=== PATIENT | male | born 1945 | race Caucasian/White ===

== ENCOUNTER 2020-08-01 18:43 | Inpatient (IN) ==
[2020-08-01] MEDS ORDERED: 0.9 % SODIUM CHLORIDE 1,000 ML IV ONE (19:17)
--- NOTE | 2020-08-01 20:17 | Emergency Department Note ---
Weakness HPI General Chief complaint: Weakness Stated complaint: weakness Time Seen by Provider: 08/01/20 18:59 Source: patient and EMS Mode of arrival: EMS Limitations: no limitations History of Present Illness HPI Narrative: Narrative: 75-year-old male comes in complaining of flulike symptoms including body aches, mild congestion and cough. No trouble breathing or chest pain. His has the Covid and so she was concerned about him. She is his primary caregiver and he is bedridden. He has bedsores on his buttocks. He is also started antibiotics yesterday for urinary tract infection-cefuroxime plus methenamine. He has indwelling Chavez-it is dark but he says this is because he started [id number] medicine for it like Azo. Related Data Home Medications Medication Instructions Recorded Confirmed ciprofloxacin HCl 500 mg tablet 500 mg PO BID 12/02/19 12/02/19 nystatin-triamcinolone 100,000 1 applic TOPICAL BID 12/02/19 unit/g-0.1 % topical cream Previous Rx's Medication Instructions Recorded amlodipine 10 mg tablet 10 mg PO QDAY #90 tab 04/29/16 hydrocodone 5 mg-acetaminophen 325 1 tab PO .QD PRN #30 tab 04/29/16 mg tablet metoprolol tartrate 100 mg tablet 100 mg PO QDAY #90 tab 04/29/16 simvastatin 20 mg tablet 20 mg PO QPM #90 tab 04/29/16 benazepril 20 mg tablet 20 mg PO QDAY #60 tab 05/20/16 omeprazole 20 mg capsule,delayed 20 mg PO QDAY #60 cap 05/20/16 release potassium chloride 20 meq PO BIDCC #20 tab 07/11/18 Allergies Allergy/AdvReac Type Severity Reaction Status Date / Time No Known Drug Allergies Allergy Verified 08/01/20 18:45 Review of Systems ROS ROS Narrative: Narrative: All systems ED: reviewed and negative except as stated. PFSH Narrative Patient History Narrative: Narrative: Medical/Surgical/Family History All Active Problems (Updated 08/01/20 @ 23:17 by Jordan Delvalle MD) Pressure ulcer of buttock (Acute) Acute UTI (Acute) COVID-19 (Acute) Bedridden (Acute) Chronic indwelling Chavez catheter (Acute) Traumatic pneumothorax (Chronic ~2016) Broken ribs (Chronic ~2017) Rash (Chronic) Poor sleep (Chronic) Indigestion (Chronic) Hypercalcemia (Chronic) Serum iron raised (Chronic) Urticaria (Chronic) Elevated ferritin (Chronic) Elevated liver enzymes (Chronic) GERD (gastroesophageal reflux disease) (Chronic) Abscess of buttock (Chronic) Pneumothorax (Chronic) Impacted cerumen of both ears (Chronic) Balance problem (Chronic) Frequent falls (Chronic) Weakness (Chronic) Mobility poor (Chronic) Benign essential tremor (Chronic) Dizziness (Chronic) Rhabdomyolysis (Acute) Fall (Acute) Hypotension (Acute) Hypokalemia (Acute) Tobacco abuse (Chronic) Rosacea (Chronic) Low back pain (Chronic) Hypertension, essential (Chronic) Hyperlipidemia (Chronic 11/25/13) Erectile dysfunction (Chronic) Eczema (Chronic) Personal history of colonic polyps (Chronic) Benign neoplasm of eye (Chronic) Alcohol dependence (Chronic) Medical History Abscess of buttock (Chronic) Alcohol dependence (Chronic) Balance problem (Chronic) Benign essential tremor (Chronic) 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, 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 Broken ribs (Chronic ~2016) 2 broken ribs right side that punctured lung Dizziness (Chronic) Eczema (Chronic) Elevated ferritin (Chronic) Elevated liver enzymes (Chronic) Erectile dysfunction (Chronic) Fall (Acute) Frequent falls (Chronic) GERD (gastroesophageal reflux disease) (Chronic) Hypercalcemia (Chronic) Hyperlipidemia (Chronic 11/25/13) Hypertension, essential (Chronic) 1989 Hypokalemia (Acute) Hypotension (Acute) Impacted cerumen of both ears (Chronic) Indigestion (Chronic) Low back pain (Chronic) 27 years of age, chronic low back pain Mobility poor (Chronic) Personal history of colonic polyps (Chronic) Pneumothorax (Chronic) Poor sleep (Chronic) Rash (Chronic) reoccurring Rhabdomyolysis (Acute) Rosacea (Chronic) Serum iron raised (Chronic) Tobacco abuse (Chronic) Traumatic pneumothorax (Chronic ~2017) 2 broken ribs right side that punctured lung Urticaria (Chronic) Weakness (Chronic) Surgical History History of colonoscopy (Chronic 04/03/14) History of knee replacement procedure of right knee (Chronic) Sep 2010, Injury in [employer] and had removal of cartilage at that time, needed replacement due to "bone on bone" that had caused increased pain History of knee surgery (Chronic) 1960s Cartilage removed from right knee History of tonsillectomy (Chronic) 7 years of age History of vasectomy (Chronic) 1985 S/P skin biopsy (Chronic 05/31/14) Atypical squamoproliferative lesion associated with ulcer 06/07/2014: Left Buttock: Residual ulcerated atypical squamosproliferative lesion, favor prurigo nodularis Family History Mother , 72 Malignant neoplasm of breast, Onset Age: 67 CHF (congestive heart failure), Onset Age: 70 Brother DM type 2 (diabetes mellitus, type 2), Onset Age: 55 Father , 69 Hypertension, essential 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 Chavez has dark red urine in it. He is normocephalic atraumatic. Conjunctive are clear sclerae white nonicteric. No nasal discharge but mild audible congestion. Oropharynx pink and moist. Heart is regular rate and rhythm no murmur appreciated. Lungs are clear to auscultation bilaterally without wheezes rales rhonchi or respiratory distress. Abdomen is soft nontender nondistended. He was able to pull himself over to 1 side so I could take a look at his buttocks and I do see stage II pressure ulcers on both sides of the buttock cleft there is some maceration here and a breakdown of the skin at the cleft as well some purulent discharge. These areas are approximately 5 cm long and about 3 cm wide bilaterally. The right one is little bit larger than the left. It does look like he has some atrophy of his legs and his feet are somewhat flaccid. He does appear to be mentating at baseline he is able to give me reasonable history and review of system answer questions appropriately. General Limitations: no limitations Course Vital Signs Vital signs: Vital Signs Temperature 98.8 F 08/01/20 18:43 Pulse Rate 70 08/01/20 18:43 Respiratory Rate 18 08/01/20 18:43 Blood Pressure 125/80 08/01/20 18:43 Pulse Oximetry (%) 94 08/01/20 18:43 Temperature 98.8 F 08/01/20 18:43 Pulse Rate 76 08/01/20 20:12 Respiratory Rate 18 08/01/20 18:43 Blood Pressure 128/81 08/01/20 20:12 Pulse Oximetry (%) 94 08/01/20 20:12 MDM MDM Narrative Medical decision making narrative: Narrative: So he has a current UTI, stage II ulcers at his buttocks and known exposure to Covid-now with early symptoms. It is unclear how long he has been exposed to the Covid. He is currently on antibiotics. We will order work-up with laboratory and x-ray. Laboratory shows continued UTI despite getting a dose of cefuroxime. We will give him a dose of Rocephin here. Indwelling Chavez catheter complicates things Covid is positive and he does have symptoms of cough and congestion but chest x- ray is clear. Procalcitonin is mildly elevated He is bedridden and does have stage II pressure ulcers bilateral sacral prominences but they do not necessarily appear infected. He will need regular care for these. I discussed the situation with his . His is sick at home and cannot get out of bed to take care of him. There is no family nearby and [facility] can not come to them because they are Covid positive. So we will have to keep him here I discussed the scenario with Dr. Kaur and he agreed to accept the patient for further care and evaluation here in the hospital. I will go ahead and write transition orders for him to include remdesivir Rocephin and routine wound care. Dr. Kaur will see him in the morning Lab Data Lab results reviewed: Yes I reviewed the patient's lab results. Lab results narrative: Covid testing is positive Result diagrams: 08/01/20 19:40 08/01/20 19:40 Labs: Lab Results 08/01/20 08/01/20 08/01/20 Range/Units 19:40 19:40 19:40 WBC 4.4 L (4.5-11.0) K/mcL RBC 5.75 (4.50-5.90) M/mcL Hgb 16.3 (13.5-16.5) g/dL Hct 49.4 (41.0-55.0) % MCV 85.9 (80.0-100.0) fL MCH 28.3 (26.0-34.0) pg MCHC 33.0 (31.0-36.0) g/dL RDW 15.0 H (11.5-14.5) % Plt Count 212 (140-440) K/mcL MPV 9.4 (7.4-10.4) fL Neut % (Auto) 58.8 (38.0-78.0) % Lymph % (Auto) 22.6 (15.0-49.0) % [place] % (Auto) 16.3 H (1.0-12.0) % Eos % (Auto) 1.8 (0.0-7.0) % Baso % (Auto) 0.5 (0.0-2.0) % Lymph # (Auto) 1.00 L (1.50-4.80) K/mcL [place] # (Auto) 0.72 (0.10-0.90) K/mcL Eos # (Auto) 0.08 (0.00-0.70) K/mcL Baso # (Auto) 0.02 (0.00-0.20) K/mcL Absolute Neutrophils 2.60 (1.80-8.00) K/mcL VBG Lactic Acid 1.1 (0.5-2.0) mmol/L Sodium 135 (133-145) mmol/L Potassium 4.3 (3.3-5.1) mmol/L Chloride 100 (96-108) mmol/L Carbon Dioxide 21 L (22-30) mmol/L Anion Gap 14.0 (8.0-16.0) BUN 16 (8-23) mg/dL Creatinine 0.9 (0.7-1.2) mg/dL GFR Calculation 84 Glucose 84 (70-105) mg/dL Calcium 8.9 (8.6-10.4) mg/dL Magnesium 2.2 (1.6-2.5) mg/dL Total Bilirubin 0.6 (0.1-1.0) mg/dL AST 23 (<40) U/L ALT 12 (<40) U/L Alkaline Phosphatase 107 (39-117) U/L Troponin T (<0.03) ng/mL C-Reactive Protein 1.90 H (0.03-0.80) mg/dL NT-Pro-B Natriuret Pep 57.9 (<125.0) pg/mL Total Protein 7.2 (5.9-8.4) gm/dL Albumin 3.9 (3.2-5.2) gm/dL Globulin 3.3 (2.2-3.7) gm/dL Albumin/Globulin Ratio 1.2 (1.0-2.3) Procalcitonin (<0.10) ng/mL Urine Color Urine Appearance (Clear) Urine pH (5.0-9.0) Ur Specific [place] (1.000-1.035) Urine Protein (Negative) mg/dL Urine Glucose (UA) (Negative) mg/dL Urine Ketones (Negative) mg/dL Urine Occult Blood (Negative) mg/dL Urine Nitrate (Negative) Urine Bilirubin (Negative) mg/dL Urine Urobilinogen mg/dL Ur Leukocyte Esterase (Negative) /ug Urine RBC (0-1) /hpf Urine WBC (0-4) /hpf Ur Squamous Epith Cells (0-4) /hpf Calcium Oxalate Crystal (None) /hpf Urine Bacteria (0) /hpf Hyaline Casts (0-2) /lph Urine Mucus (None) /hpf Ur Culture Indicated? SARS-CoV-2 (PCR) (Negative) 08/01/20 08/01/20 08/01/20 Range/Units 19:40 19:40 19:44 WBC (4.5-11.0) K/mcL RBC (4.50-5.90) M/mcL Hgb (13.5-16.5) g/dL Hct (41.0-55.0) % MCV (80.0-100.0) fL MCH (26.0-34.0) pg MCHC (31.0-36.0) g/dL RDW (11.5-14.5) % Plt Count (140-440) K/mcL MPV (7.4-10.4) fL Neut % (Auto) (38.0-78.0) % Lymph % (Auto) (15.0-49.0) % [place] % (Auto) (1.0-12.0) % Eos % (Auto) (0.0-7.0) % Baso % (Auto) (0.0-2.0) % Lymph # (Auto) (1.50-4.80) K/mcL [place] # (Auto) (0.10-0.90) K/mcL Eos # (Auto) (0.00-0.70) K/mcL Baso # (Auto) (0.00-0.20) K/mcL Absolute Neutrophils (1.80-8.00) K/mcL VBG Lactic Acid (0.5-2.0) mmol/L Sodium (133-145) mmol/L Potassium (3.3-5.1) mmol/L Chloride (96-108) mmol/L Carbon Dioxide (22-30) mmol/L Anion Gap (8.0-16.0) BUN (8-23) mg/dL Creatinine (0.7-1.2) mg/dL GFR Calculation Glucose (70-105) mg/dL Calcium (8.6-10.4) mg/dL Magnesium (1.6-2.5) mg/dL Total Bilirubin (0.1-1.0) mg/dL AST (<40) U/L ALT (<40) U/L Alkaline Phosphatase (39-117) U/L Troponin T < 0.01 (<0.03) ng/mL C-Reactive Protein (0.03-0.80) mg/dL NT-Pro-B Natriuret Pep (<125.0) pg/mL Total Protein (5.9-8.4) gm/dL Albumin (3.2-5.2) gm/dL Globulin (2.2-3.7) gm/dL Albumin/Globulin Ratio (1.0-2.3) Procalcitonin 0.11 H (<0.10) ng/mL Urine Color Urine Appearance (Clear) Urine pH (5.0-9.0) Ur Specific [place] (1.000-1.035) Urine Protein (Negative) mg/dL Urine Glucose (UA) (Negative) mg/dL Urine Ketones (Negative) mg/dL Urine Occult Blood (Negative) mg/dL Urine Nitrate (Negative) Urine Bilirubin (Negative) mg/dL Urine Urobilinogen mg/dL Ur Leukocyte Esterase (Negative) /ug Urine RBC (0-1) /hpf Urine WBC (0-4) /hpf Ur Squamous Epith Cells (0-4) /hpf Calcium Oxalate Crystal (None) /hpf Urine Bacteria (0) /hpf Hyaline Casts (0-2) /lph Urine Mucus (None) /hpf Ur Culture Indicated? SARS-CoV-2 (PCR) Positive A (Negative) 08/01/20 Range/Units 20:05 WBC (4.5-11.0) K/mcL RBC (4.50-5.90) M/mcL Hgb (13.5-16.5) g/dL Hct (41.0-55.0) % MCV (80.0-100.0) fL MCH (26.0-34.0) pg MCHC (31.0-36.0) g/dL RDW (11.5-14.5) % Plt Count (140-440) K/mcL MPV (7.4-10.4) fL Neut % (Auto) (38.0-78.0) % Lymph % (Auto) (15.0-49.0) % [place] % (Auto) (1.0-12.0) % Eos % (Auto) (0.0-7.0) % Baso % (Auto) (0.0-2.0) % Lymph # (Auto) (1.50-4.80) K/mcL [place] # (Auto) (0.10-0.90) K/mcL Eos # (Auto) (0.00-0.70) K/mcL Baso # (Auto) (0.00-0.20) K/mcL Absolute Neutrophils (1.80-8.00) K/mcL VBG Lactic Acid (0.5-2.0) mmol/L Sodium (133-145) mmol/L Potassium (3.3-5.1) mmol/L Chloride (96-108) mmol/L Carbon Dioxide (22-30) mmol/L Anion Gap (8.0-16.0) BUN (8-23) mg/dL Creatinine (0.7-1.2) mg/dL GFR Calculation Glucose (70-105) mg/dL Calcium (8.6-10.4) mg/dL Magnesium (1.6-2.5) mg/dL Total Bilirubin (0.1-1.0) mg/dL AST (<40) U/L ALT (<40) U/L Alkaline Phosphatase (39-117) U/L Troponin T (<0.03) ng/mL C-Reactive Protein (0.03-0.80) mg/dL NT-Pro-B Natriuret Pep (<125.0) pg/mL Total Protein (5.9-8.4) gm/dL Albumin (3.2-5.2) gm/dL Globulin (2.2-3.7) gm/dL Albumin/Globulin Ratio (1.0-2.3) Procalcitonin (<0.10) ng/mL Urine Color [place] Urine Appearance Cloudy A (Clear) Urine pH 5.0 (5.0-9.0) Ur Specific [place] 1.025 (1.000-1.035) Urine Protein 100 A (Negative) mg/dL Urine Glucose (UA) Negative (Negative) mg/dL Urine Ketones 20 A (Negative) mg/dL Urine Occult Blood >=1.0 A (Negative) mg/dL Urine Nitrate Pos A (Negative) Urine Bilirubin Negative (Negative) mg/dL Urine Urobilinogen 4.0 A mg/dL Ur Leukocyte Esterase 75 A (Negative) /ug Urine RBC > 182 H (0-1) /hpf Urine WBC 84 H (0-4) /hpf Ur Squamous Epith Cells 0 (0-4) /hpf Calcium Oxalate Crystal Few A (None) /hpf Urine Bacteria Mod A (0) /hpf Hyaline Casts 13 H (0-2) /lph Urine Mucus Few A (None) /hpf Ur Culture Indicated? yes SARS-CoV-2 (PCR) (Negative) Radiology Data Radiology results reviewed: Yes I reviewed the patient's radiology results. Radiology results narrative: Chest x-ray is negative Discharge Plan Patient/Caregiver Discharge Instructions Pt seen by [employer]/PA only: No Clinical Impression: Acute UTI, COVID-19, Bedridden, Chronic indwelling Chavez catheter Pressure ulcer of buttock Qualifiers: Pressure injury stage: stage 2 Laterality: unspecified laterality Qualified Code(s): L89.302 - Pressure ulcer of unspecified buttock, stage 2 Patient Disposition: Xfer As Inpt ([facility]) Condition: Fair Follow up with: Yaya Rader ARNP [Primary Care Provider] - Prescriptions: No Action ciprofloxacin HCl 500 mg tablet 500 mg PO BID RF: 0 nystatin-triamcinolone 100,000 unit/g-0.1 % topical cream 100,000-0.1 unit/g-% cream 1 applic TOPICAL BID RF: 0 amlodipine 10 mg tablet 10 mg PO QDAY Qty: 90 RF: 3 metoprolol tartrate 100 mg tablet 100 mg PO QDAY Qty: 90 RF: 3 simvastatin 20 mg tablet 20 mg PO QPM Qty: 90 RF: 3 hydrocodone-acetaminophen 5-325 mg tablet 1 tab PO .QD PRN (Reason: pain) Qty: 30 RF: 0 benazepril 20 mg tablet 20 mg PO QDAY Qty: 60 RF: 2 omeprazole 20 mg capsule,delayed release(DR/EC) 20 mg PO QDAY Qty: 60 RF: 3 potassium chloride 20 MEQ tablet 20 meq PO BIDCC Qty: 20 RF: 0
--- NOTE | 2020-08-01 20:36 | XRay Report ---
INDICATION: exposure to covid. flu sx TECHNIQUE: AP portable semiupright chest x-ray COMPARISON: Previous chest x-rays dated 09/07/2018, 07/11/2018, 05/09/2016 FINDINGS: Lungs:Lungs are negative. No focal pulmonary parenchymal infiltrate or mass Heart, vascular:No significant cardiomegaly. Pulmonary vascularity is normal. No pulmonary edema or pulmonary congestion Mediastinum, lina:No mediastinal widening. No hilar mass Pleura:No pleural fluid. No pleural-based mass or calcification Skeletal:Negative. IMPRESSION: Negative AP chest x-ray Interpreted and Authenticated by: Jace Pitts 08/01/20
[2020-08-01 21:19] LABS: Appearance,Urine CLOUDY (Clear); Bacteria,Urine MOD /hpf (0); Bilirubin,Urine Negative (Negative); Calcium Oxalate Crystals,Urine FEW /hpf; Color,Urine AMBER; Culture Indicated,Urine yes; Glucose,Urine (UA) Negative (Negative); Ketones,Urine 20 mg/dL (Negative); Leukocyte Esterase,Urine 75 /ug (Negative); Mucus,Urine FEW /hpf; Nitrate,Urine POS (Negative); Protein,Urine 100 mg/dL (Negative); Specific Gravity,Urine 1.025 (1.000-1.035); Urine Blood >=1.0 mg/dL (Negative); Urine Hyaline Cast 13 /lph (0-2); Urine RBC > 182 /hpf (0-1); Urine Squamous Epithelial Cell 0 /hpf (0-4); Urine WBC 84 /hpf (0-4)
[2020-08-01 21:21] LABS: Basophils # (Auto) 0.02 K/mcL (0.00-0.20); Basophils % (Auto) 0.5 % (0.0-2.0); Eosinophils # (Auto) 0.08 K/mcL (0.00-0.70); Eosinophils % (Auto) 1.8 % (0.0-7.0); Hematocrit 49.4 % (41.0-55.0); Hemoglobin 16.3 g/dL (13.5-16.5); Lymphocytes % (Auto) 22.6 % (15.0-49.0); Mean Cell Volume 85.9 fL (80.0-100.0); Mean Platelet Volume 9.4 fL (7.4-10.4); Monocytes # (Auto) 0.72 K/mcL (0.10-0.90); Monocytes % (Auto) 16.3 % (1.0-12.0); Neutrophils % (Auto) 58.8 % (38.0-78.0); Platelet Count 212 K/mcL (140-440); RBC 5.75 M/mcL (4.50-5.90); WBC 4.4 K/mcL (4.5-11.0)
[2020-08-01 21:25] LABS: ALT/SGPT 12 U/L (<40); AST/SGOT 23 U/L (<40); Albumin 3.9 gm/dL (3.2-5.2); Albumin/Globulin Ratio 1.2 (1.0-2.3); Alkaline Phosphatase 107 U/L (39-117); Bilirubin,Total 0.6 mg/dL (0.1-1.0); Blood Urea Nitrogen 16 mg/dL (8-23); Calcium 8.9 mg/dL (8.6-10.4); Carbon Dioxide 21 mmol/L (22-30); Chloride 100 mmol/L (96-108); Globulin 3.3 gm/dL (2.2-3.7); Glomerular Filtration Rate 84; Glucose 84 mg/dL (70-105); proBNP 57.9 pg/mL (<125.0)
[2020-08-01] MEDS ORDERED: cefTRIAXone 1 GM VIAL IV ONE (22:25)
[2020-08-01] MEDS ORDERED: REMDESIVIR 200 MG in 0.9 % SODIUM CHLORIDE 250 ML IV ONE (23:21)
[2020-08-02] MEDS: 0.9 % SODIUM CHLORIDE 1,000 ML IV SCH ×3 (02:01→20:40)
[2020-08-02] MEDS ORDERED: MAGNESIUM SULFATE 2 GM/50 ML BAG IV PRN (08:25)
[2020-08-02] MEDS ORDERED: ACETAMINOPHEN 325 MG TABLET PO PRN (08:25)
[2020-08-02] MEDS ORDERED: POLYETHYLENE GLYCOL 3350 17 GM PACKET PO PRN (08:25)
[2020-08-02] MEDS ORDERED: ONDANSETRON 4 MG ODT TABLET SL PRN (08:25)
[2020-08-02] MEDS ORDERED: POTASSIUM CHLORIDE 20 MEQ PACKET PO PRN (08:25)
[2020-08-02] MEDS ORDERED: POTASSIUM CHLORIDE 40 MEQ in DEXTROSE 5% IN WATER 500 ML IV PRN (08:25)
[2020-08-02] MEDS ORDERED: ONDANSETRON 4 MG/2 ML VIAL IV PRN (08:25)
[2020-08-02] MEDS ORDERED: BISACODYL 10 MG SUPP.RECT PR PRN (08:25)
[2020-08-02] MEDS ORDERED: ACETAMINOPHEN 650 MG/65 ML BOTTLE IV PRN (08:25)
[2020-08-02] MEDS ORDERED: HYDROcodone/APAP 10/325MG TABLET PO PRN (08:29)
[2020-08-02] MEDS ORDERED: REMDESIVIR 100 MG in 0.9 % SODIUM CHLORIDE 250 ML IV SCH (08:30)
--- NOTE | 2020-08-02 08:30 | Internal Med History&Physical ---
HPI History of Present Illness Patient information: Note initiated : 08/01/20 at 11:45 pm Service Date, if different from initiated Date: [] Patient: Marvin Jimenez a 75 y/o M admitted on 08/02/20 for weakness. Chief Complaint: History of present illness: Mr. Jimenez is a 75 year old M with a history of progressive paraplegia over the last 1 year following a fall, hypertension, chronic pain, sacral decubiti and indwelling catheter who lives with his at [facility]. Patient presents to the ER with few days onset of weakness, nasal congestion myalgia and cough. He was evaluated in the ER where initial work-up was consistent with positive COVID-19 with acute viral syndrome and complicated hardware related UTI with pyuria. Patient changes catheter once every 3 weeks. He has been on methenamine and cefuroxime as an outpatient for catheter infection which clearly has failed treatment and gotten worse. Patient's expressed great concerns about ability to take care of him due to paraplegia/and both being Covid positive. Subsequently hospital service was consulted for admission At the time of my evaluation patient is alert but anxious. He is able to answer most of the questions and endorsed to history as above. He denies changes medications. He change his catheter 2 weeks ago. Review of systems 10 point review system was performed and is negative except for ones discussed above PFSH PFSH All Active Problems (Updated 08/01/20 @ 23:17 by Jordan Delvalle MD) Pressure ulcer of buttock (Acute) Acute UTI (Acute) COVID-19 (Acute) Bedridden (Acute) Chronic indwelling Chavez catheter (Acute) Traumatic pneumothorax (Chronic ~2017) Broken ribs (Chronic ~2017) Rash (Chronic) Poor sleep (Chronic) Indigestion (Chronic) Hypercalcemia (Chronic) Serum iron raised (Chronic) Urticaria (Chronic) Elevated ferritin (Chronic) Elevated liver enzymes (Chronic) GERD (gastroesophageal reflux disease) (Chronic) Abscess of buttock (Chronic) Pneumothorax (Chronic) Impacted cerumen of both ears (Chronic) Balance problem (Chronic) Frequent falls (Chronic) Weakness (Chronic) Mobility poor (Chronic) Benign essential tremor (Chronic) Dizziness (Chronic) Rhabdomyolysis (Acute) Fall (Acute) Hypotension (Acute) Hypokalemia (Acute) Tobacco abuse (Chronic) Rosacea (Chronic) Low back pain (Chronic) Hypertension, essential (Chronic) Hyperlipidemia (Chronic 11/25/13) Erectile dysfunction (Chronic) Eczema (Chronic) Personal history of colonic polyps (Chronic) Benign neoplasm of eye (Chronic) Alcohol dependence (Chronic) Medical History Abscess of buttock (Chronic) Alcohol dependence (Chronic) Balance problem (Chronic) Benign essential tremor (Chronic) 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, 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 Broken ribs (Chronic ~2017) 2 broken ribs right side that punctured lung Dizziness (Chronic) Eczema (Chronic) Elevated ferritin (Chronic) Elevated liver enzymes (Chronic) Erectile dysfunction (Chronic) Fall (Acute) Frequent falls (Chronic) GERD (gastroesophageal reflux disease) (Chronic) Hypercalcemia (Chronic) Hyperlipidemia (Chronic 11/25/13) Hypertension, essential (Chronic) 1989 Hypokalemia (Acute) Hypotension (Acute) Impacted cerumen of both ears (Chronic) Indigestion (Chronic) Low back pain (Chronic) 27 years of age, chronic low back pain Mobility poor (Chronic) Personal history of colonic polyps (Chronic) Pneumothorax (Chronic) Poor sleep (Chronic) Rash (Chronic) reoccurring Rhabdomyolysis (Acute) Rosacea (Chronic) Serum iron raised (Chronic) Tobacco abuse (Chronic) Traumatic pneumothorax (Chronic ~2017) 2 broken ribs right side that punctured lung Urticaria (Chronic) Weakness (Chronic) Surgical History History of colonoscopy (Chronic 04/03/14) History of knee replacement procedure of right knee (Chronic) Sep 2010, Injury in [employer] and had removal of cartilage at that time, needed replacement due to "bone on bone" that had caused increased pain History of knee surgery (Chronic) 1960s Cartilage removed from right knee History of tonsillectomy (Chronic) 7 years of age History of vasectomy (Chronic) 1985 S/P skin biopsy (Chronic 05/31/14) Atypical squamoproliferative lesion associated with ulcer 06/07/2014: Left Buttock: Residual ulcerated atypical squamosproliferative lesion, favor prurigo nodularis Family History Mother , 72 Malignant neoplasm of breast, Onset Age: 67 CHF (congestive heart failure), Onset Age: 70 Brother DM type 2 (diabetes mellitus, type 2), Onset Age: 55 Father , 69 Hypertension, essential Lung disease thought to be caused by leather fibers from work in a [employer] company Social History marital status: occupational status: retired 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 smoking status: Smokeless tobacco alcohol intake frequency: 2+ drinks per day MEDS/ALLERGIES Home Medications and Allergies Home Medications Medication Instructions Recorded Confirmed Type metoprolol tartrate 100 mg tablet 100 mg PO QDAY #90 tab 04/29/16 08/01/20 Rx benazepril 20 mg tablet 20 mg PO QDAY #60 tab 05/20/16 08/01/20 Rx cefuroxime axetil 500 mg PO BID 08/01/20 08/01/20 History hydrocodone-acetaminophen 1 tab PO Q8H PRN 08/01/20 08/01/20 History methenamine hippurate 1 g PO BID 08/01/20 08/01/20 History oxycodone 5 mg PO TID 08/01/20 08/01/20 History Allergies Allergy/AdvReac Type Severity Reaction Status Date / Time No Known Drug Allergies Allergy Verified 08/02/20 01:44 EXAM Constitutional Vitals: Temp Pulse Resp BP Pulse Ox 96.2 F L 72 16 122/68 94 08/02/20 07:16 08/02/20 07:16 08/02/20 07:16 08/02/20 07:16 08/02/20 07:16 Alert but anxious Head normocephalic Oral cavity moist No ear nose discharge Eye movement symmetrical Neck supple no lymphadenopathy S1-S2 regular Nonlabored breathing Nondistended nontender abdomen Indwelling Chavez's catheter Sacral decubiti Paraplegic Psych no hallucination Neuro paraplegia DATA Data Completed and Pending Labs: Labs from last 24 hours 08/01/20 08/01/20 08/01/20 20:05 19:44 19:40 WBC RBC Hgb Hct MCV MCH MCHC RDW Plt Count MPV Neut % (Auto) Lymph % (Auto) Falls % (Auto) Eos % (Auto) Baso % (Auto) Lymph # (Auto) Falls # (Auto) Eos # (Auto) Baso # (Auto) Absolute Neutrophils VBG Lactic Acid Sodium Potassium Chloride Carbon Dioxide Anion Gap BUN Creatinine GFR Calculation Glucose Calcium Magnesium Total Bilirubin AST ALT Alkaline Phosphatase Troponin T C-Reactive Protein NT-Pro-B Natriuret Pep Total Protein Albumin Globulin Albumin/Globulin Ratio Procalcitonin 0.11 H Urine Color Layla Urine Appearance Cloudy A Urine pH 5.0 Ur Specific [place] 1.025 Urine Protein 100 A Urine Glucose (UA) Negative Urine Ketones 20 A Urine Occult Blood >=1.0 A Urine Nitrate Pos A Urine Bilirubin Negative Urine Urobilinogen 4.0 A Ur Leukocyte Esterase 75 A Urine RBC > 182 H Urine WBC 84 H Ur Squamous Epith Cells 0 Calcium Oxalate Crystal Few A Urine Bacteria Mod A Hyaline Casts 13 H Urine Mucus Few A Ur Culture Indicated? yes SARS-CoV-2 (PCR) Positive A 08/01/20 08/01/20 08/01/20 19:40 19:40 19:40 WBC RBC Hgb Hct MCV MCH MCHC RDW Plt Count MPV Neut % (Auto) Lymph % (Auto) Falls % (Auto) Eos % (Auto) Baso % (Auto) Lymph # (Auto) Falls # (Auto) Eos # (Auto) Baso # (Auto) Absolute Neutrophils VBG Lactic Acid 1.1 Sodium 135 Potassium 4.3 Chloride 100 Carbon Dioxide 21 L Anion Gap 14.0 BUN 16 Creatinine 0.9 GFR Calculation 84 Glucose 84 Calcium 8.9 Magnesium 2.2 Total Bilirubin 0.6 AST 23 ALT 12 Alkaline Phosphatase 107 Troponin T < 0.01 C-Reactive Protein 1.90 H NT-Pro-B Natriuret Pep 57.9 Total Protein 7.2 Albumin 3.9 Globulin 3.3 Albumin/Globulin Ratio 1.2 Procalcitonin Urine Color Urine Appearance Urine pH Ur Specific [place] Urine Protein Urine Glucose (UA) Urine Ketones Urine Occult Blood Urine Nitrate Urine Bilirubin Urine Urobilinogen Ur Leukocyte Esterase Urine RBC Urine WBC Ur Squamous Epith Cells Calcium Oxalate Crystal Urine Bacteria Hyaline Casts Urine Mucus Ur Culture Indicated? SARS-CoV-2 (PCR) 08/01/20 19:40 WBC 4.4 L RBC 5.75 Hgb 16.3 Hct 49.4 MCV 85.9 MCH 28.3 MCHC 33.0 RDW 15.0 H Plt Count 212 MPV 9.4 Neut % (Auto) 58.8 Lymph % (Auto) 22.6 Falls % (Auto) 16.3 H Eos % (Auto) 1.8 Baso % (Auto) 0.5 Lymph # (Auto) 1.00 L [place] # (Auto) 0.72 Eos # (Auto) 0.08 Baso # (Auto) 0.02 Absolute Neutrophils 2.60 VBG Lactic Acid Sodium Potassium Chloride Carbon Dioxide Anion Gap BUN Creatinine GFR Calculation Glucose Calcium Magnesium Total Bilirubin AST ALT Alkaline Phosphatase Troponin T C-Reactive Protein NT-Pro-B Natriuret Pep Total Protein Albumin Globulin Albumin/Globulin Ratio Procalcitonin Urine Color Urine Appearance Urine pH Ur Specific [place] Urine Protein Urine Glucose (UA) Urine Ketones Urine Occult Blood Urine Nitrate Urine Bilirubin Urine Urobilinogen Ur Leukocyte Esterase Urine RBC Urine WBC Ur Squamous Epith Cells Calcium Oxalate Crystal Urine Bacteria Hyaline Casts Urine Mucus Ur Culture Indicated? SARS-CoV-2 (PCR) A/P Narrative A/P Narrative: * Complicated UTI hardware related failed outpatient treatment. Start antibiotic coverage on Rocephin and de-escalate based on sensitivities. * COVID-19 acute viral syndrome-start remdesivir/dexamethasone/contact precautions * History of hypertension continue benazepril * Chronic pain continue hydrocodone acetaminophen/Oxycodone * Sacral decubiti wound care/frequent turning and offloading * Prophylaxis heparin * DNR Plan * Observation admission * Antibiotic coverage * Change Chavez's catheter * Remdesivir/dexamethasone/contact precautions * Pre-existing medical condition management as above Time Spent With Patient Time: Total time spent is greater than 50% in coordination of care (as documented) at patient's floor/unit and/or counseling patient: QUALITY Stroke Symptom Onset Unknown: No VTE Deep Vein Thrombosis/Pulmonary Embolism Present on Admission: No
[2020-08-02] MEDS ORDERED: cefTRIAXone 2 GM VIAL ONE (08:46)
[2020-08-02] MEDS: HEPARIN 5,000 UNIT/ML VIAL SQ SCH ×2 (09:05→20:41)
[2020-08-02] MEDS: MULTIVIT,THER IRON,CA,FA & MIN 1 TABLET PO SCH (09:05)
[2020-08-02] MEDS: DEXAMETHASONE 4 MG TABLET PO SCH (09:05)
[2020-08-02] MEDS: LISINOPRIL 20 MG TABLET PO SCH (09:05)
[2020-08-02] MEDS: cefTRIAXone 2 GM in DEXTROSE 5% IN WATER 50 ML IV SCH ×2 (09:06→13:20)
[2020-08-02] MEDS: DOCUSATE SODIUM 100 MG CAPSULE PO SCH ×2 (09:06→20:40)
[2020-08-02] MEDS: oxyCODONE HCL 5 MG TABLET PO SCH ×3 (09:06→20:37)
[2020-08-02] MEDS: Methenamine Hippurate 1 GM Tablet PO SCH ×2 (09:07→20:40)
[2020-08-02] MEDS: METOPROLOL TARTRATE 50 MG TABLET PO SCH (09:07)
[2020-08-02 10:25] LABS: ALT/SGPT 12 U/L (<40); AST/SGOT 25 U/L (<40); Alkaline Phosphatase 105 U/L (39-117)
--- NOTE | 2020-08-02 11:47 | Internal Med Progress Note ---
SUBJECTIVE Subjective Patient information: Note initiated : 08/02/20 at 11:43 am Service Date, if different from initiated Date: [] Patient: Marvin Jimenez a 75 y/o M admitted on 08/02/20 for weakness. Chief Complaint: History of present illness: Mr. Jimenez is a 75 year old M with a history of prog ressive paraplegia over the last 1 year following a fall, hypertension, chronic pain, sacral decubiti and indwelling catheter who lives with his at [facility]. Patient presents to the ER with few days onset of weakness, nasal congestion myalgia and cough. He was evaluated in the ER where initial work-up was consistent with positive COVID-19 with acute viral syndrome and complicated hardware related UTI with pyuria. Patient changes catheter once every 3 weeks. He has been on methenamine and cefuroxime as an outpatient for catheter infection which clearly has failed treatment and gotten worse. Patient's expressed great concerns about ability to take care of him due to paraplegia/and both being Covid positive. Subsequently hospital service was consulted for admission At the time of my evaluation patient is alert but anxious. He is able to answer most of the questions and endorsed to history as above. He denies changes medications. He change his catheter 2 weeks ago. 08/02-patient feels worse since admission. He appears anxious. Seemed visibly unhappy with his unable to take care of him. Patient requested to visit caseworkers. He however is agreeable to being treated for complicated UTI in Covid infection. He clearly stated that he would not want to be in a rehab facility following discharge and would like to go back home but unclear how he would be able to manage himself. Constitutional Vitals: Vital Signs Temp Pulse Resp BP Pulse Ox 96.2 F L 72 16 122/68 94 08/02/20 07:16 08/02/20 07:16 08/02/20 07:16 08/02/20 07:16 08/02/20 07:16 Period Temp Pulse Resp BP Sys/Marquez Pulse Ox Last 24 Hr 95.1 F-98.8 F 63-76 16-22 106-130/68-81 94-95 Intake and Output 08/01/20 08/02/20 08/02/20 21:59 05:59 13:59 Intake Total 1350 90 Output Total 950 Balance 400 90 Weight 90.718 kg 99.564 kg Alert and oriented Anxious Nonlabored breathing Chavez is draining dark urine Intake & Output: Intake & Output 08/01/20 08/02/20 08/02/20 21:59 05:59 13:59 Intake Total 1350 90 Output Total 950 Balance 400 90 Weight 90.718 kg 99.564 kg Intake: IV 1250 Sodium Chloride 0.9% 1,000 ml @ 1000 Wide Open IV .Q0M ONE Rx#: [id number] Veklury 200 mg In Sodium 250 Chloride 0.9% 250 ml @ 500 mls/ hr IV ONCE ONE Rx#:[id number] Oral 100 90 Output: Urine Catheter Amount 950 Other: Urine Appearance Clear Uretheral (Chavez) Clear Urine Color Dark Layla Tea Colored Uretheral (Chavez) Brown Red Brown OBJ DATA Labs CBC & Chem 7: 08/01/20 19:40 08/01/20 19:40 Labs: Abnormal Lab Results 08/01/20 08/01/20 08/01/20 20:05 19:44 19:40 WBC RDW [place] % (Auto) Lymph # (Auto) Carbon Dioxide C-Reactive Protein Procalcitonin 0.11 H Urine Appearance Cloudy A Urine Protein 100 A Urine Ketones 20 A Urine Occult Blood >=1.0 A Urine Nitrate Pos A Urine Urobilinogen 4.0 A Ur Leukocyte Esterase 75 A Urine RBC > 182 H Urine WBC 84 H Calcium Oxalate Crystal Few A Urine Bacteria Mod A Hyaline Casts 13 H Urine Mucus Few A SARS-CoV-2 (PCR) Positive A 08/01/20 08/01/20 19:40 19:40 WBC 4.4 L RDW 15.0 H [place] % (Auto) 16.3 H Lymph # (Auto) 1.00 L Carbon Dioxide 21 L C-Reactive Protein 1.90 H Procalcitonin Urine Appearance Urine Protein Urine Ketones Urine Occult Blood Urine Nitrate Urine Urobilinogen Ur Leukocyte Esterase Urine RBC Urine WBC Calcium Oxalate Crystal Urine Bacteria Hyaline Casts Urine Mucus SARS-CoV-2 (PCR) Meds: Medications Acetaminophen (Tylenol) 650 mg PO Q4-6HP PRN; Protocol PRN Reason: Per Pain Protocol/Fever > 101 Hydrocodone Bitart/Acetaminophen ([place] 10/325mg) 1 tab PO Q8HP PRN; Protocol PRN Reason: Pain Bisacodyl (Dulcolax) 10 mg [place] Q2-3DAYS PRN PRN Reason: Constipation Dexamethasone (Decadron) 6 mg PO DAILY [facility] Last Admin: 08/02/20 09:05 Dose: 6 mg Documented by: Docusate Sodium (Colace) 100 mg PO BID [facility] Last Admin: 08/02/20 09:06 Dose: 100 mg Documented by: Heparin Sodium (Porcine) (Heparin) 5,000 unit SQ Q12 [facility] Last Admin: 08/02/20 09:05 Dose: 5,000 unit Documented by: Sodium Chloride (Sodium Chloride 0.9%) 1,000 mls @ 50 mls/hr IV .Q20H [facility] Last Admin: 08/02/20 02:01 Dose: 50 mls/hr Documented by: Potassium Chloride 40 meq/ (Dextrose) 520 mls @ 130 mls/hr IV UD PRN PRN Reason: K+ = or < 3.5 Acetaminophen (Ofirmev) 650 mg in 65 mls @ 130 mls/hr IV Q6HP PRN; Protocol PRN Reason: Per Pain Protocol/Fever > 101 Magnesium Sulfate (Magnesium Sulfate) 2 gm in 50 mls @ 50 mls/hr IV UD PRN PRN Reason: MG = or < 1.7 Sodium Chloride (Sodium Chloride 0.9%) 1,000 mls @ 50 mls/hr IV .Q20H [facility] Stop: 08/04/20 20:29 Last Admin: 08/02/20 09:06 Dose: Not Given Documented by: Ceftriaxone Sodium 2 gm/ (Dextrose) 50 mls @ 100 mls/hr IV DAILY [facility]; Protocol Last Admin: 08/02/20 09:06 Dose: Not Given Documented by: REMDESIVIR 100 mg/ Sodium (Chloride) 250 mls @ 500 mls/hr IV DAILY [facility] Stop: 08/05/20 09:29 Iron Carb/Multivit/[place]/Folic Acid (Multivitamin W/Minerals) 1 tab PO DAILY [facility] Last Admin: 08/02/20 09:05 Dose: 1 tab Documented by: Lisinopril (Zestril) 20 mg PO DAILY [facility] Last Admin: 08/02/20 09:05 Dose: 20 mg Documented by: Melatonin (Melatonin 3mg Tablet) 3 mg PO HSP PRN PRN Reason: Insomnia Metoprolol Tartrate (Lopressor) 100 mg PO QDAY [facility] Last Admin: 08/02/20 09:07 Dose: 100 mg Documented by: Ondansetron HCl (Zofran Odt) 4 mg SL Q4-6HP PRN; Protocol PRN Reason: Nausea And Vomiting Ondansetron HCl (Zofran) 4 mg IV Q4-6HP PRN; Protocol PRN Reason: Nausea And Vomiting Oxycodone HCl (Roxicodone) 5 mg PO TID [facility]; Protocol Last Admin: 08/02/20 09:06 Dose: 5 mg Documented by: Methenamine Hippurate 1 Gm Tablet 1 dose PO BID [facility] Last Admin: 08/02/20 09:07 Dose: Not Given Documented by: Polyethylene Glycol (Miralax) 17 gm PO DAILYP PRN PRN Reason: Constipation Potassium Chloride (Klor-Con) 40 meq PO DAILYP PRN PRN Reason: K+ < 3.5 Senna/Docusate Sodium (Senna Plus Tablet) 1 tab PO HS [facility] Sodium Chloride (Saline Flush) 10 ml IV Q8 [facility] A/P Narrative A/P Narrative: * Complicated UTI hardware related failed outpatient treatment. Continue Rocephin and de-escalate based on sensitivities. * COVID-19 acute viral syndrome-continue remdesivir/dexamethasone/contact precautions * History of hypertension continue PK inhibitor/metoprolol * Chronic pain continue hydrocodone acetaminophen/Oxycodone * Sacral decubiti wound care/frequent turning and offloading * Chronic paraplegia directed therapies * Prophylaxis heparin * DNR Plan * Continue antibiotic coverage and de-escalate based on sensitivities * Replace Chavez's catheter * Continue remdesivir/dexamethasone/contact precautions * Pre-existing medical condition management as above * Case management coordinate safe discharge planning Time Spent With Patient Time: Total time spent is greater than 50% in coordination of care (as document ed) at patient's floor/unit and/or counseling patient: QUALITY Stroke Symptom Onset Unknown: No VTE Deep Vein Thrombosis/Pulmonary Embolism Present on Admission: No
[2020-08-02] MEDS: 0.9 % SODIUM CHLORIDE 10 ML SYRINGE IV SCH ×2 (13:24→20:59)
[2020-08-02] MEDS: REMDESIVIR 100 MG in 0.9 % SODIUM CHLORIDE 250 ML IV SCH (15:12)
[2020-08-02] MEDS: SENNOSIDES/DOCUSATE SODIUM 1 TAB TABLET PO SCH (20:40)
[2020-08-02] MEDS ORDERED: MELATONIN 3 MG TABLET PO PRN (21:00)
[2020-08-03] MEDS: 0.9 % SODIUM CHLORIDE 1,000 ML IV SCH ×2 (04:00→15:02)
[2020-08-03] MEDS: 0.9 % SODIUM CHLORIDE 10 ML SYRINGE IV SCH ×3 (04:08→22:10)
[2020-08-03 07:20] LABS: ALT/SGPT 12 U/L (<40); AST/SGOT 23 U/L (<40); Albumin 3.4 gm/dL (3.2-5.2); Albumin/Globulin Ratio 1.1 (1.0-2.3); Alkaline Phosphatase 101 U/L (39-117); Bilirubin,Direct < 0.2 mg/dL (<0.3); Bilirubin,Total 0.3 mg/dL (0.1-1.0); Blood Urea Nitrogen 17 mg/dL (8-23); Calcium 8.6 mg/dL (8.6-10.4); Carbon Dioxide 21 mmol/L (22-30); Chloride 101 mmol/L (96-108); Globulin 3.2 gm/dL (2.2-3.7); Glomerular Filtration Rate 100; Glucose 144 mg/dL (70-105); Lactate Dehydrogenase 159 U/L (135-225); Phosphorous 1.6 mg/dL (2.5-4.5); Triglycerides 80 mg/dL (<150); Uric Acid 7.1 mg/dL (2.5-8.0)
[2020-08-03 08:21] LABS: Ferritin 858.4 ng/mL (30.0-400.0)
[2020-08-03] MEDS: cefTRIAXone 2 GM in DEXTROSE 5% IN WATER 50 ML IV SCH (08:39)
[2020-08-03] MEDS: HEPARIN 5,000 UNIT/ML VIAL SQ SCH ×2 (08:39→22:09)
[2020-08-03] MEDS: METOPROLOL TARTRATE 50 MG TABLET PO SCH (08:40)
[2020-08-03] MEDS: oxyCODONE HCL 5 MG TABLET PO SCH ×3 (08:40→22:11)
[2020-08-03] MEDS: DEXAMETHASONE 4 MG TABLET PO SCH (08:40)
[2020-08-03] MEDS: DOCUSATE SODIUM 100 MG CAPSULE PO SCH ×2 (08:41→22:11)
[2020-08-03] MEDS: Methenamine Hippurate 1 GM Tablet PO SCH ×2 (08:41→22:10)
[2020-08-03] MEDS: LISINOPRIL 20 MG TABLET PO SCH (08:41)
[2020-08-03] MEDS: MULTIVIT,THER IRON,CA,FA & MIN 1 TABLET PO SCH (08:41)
[2020-08-03] MEDS: NEUTRA PHOS 1 PACKET PO PRN (09:54)
[2020-08-03] MEDS: REMDESIVIR 100 MG in 0.9 % SODIUM CHLORIDE 250 ML IV SCH (09:54)
--- NOTE | 2020-08-03 10:57 | Internal Med Progress Note ---
SUBJECTIVE Subjective Patient information: Note initiated : 08/03/20 at 10:53 am Service Date, if different from initiated Date: [] Patient: Marvin Jimenez a 75 y/o M admitted on 08/02/20 for weakness. Chief Complaint: [] Interval history: History of present illness: Mr. Jimenez is a 75 year old M with a history of progressive paraplegia over the last 1 year following a fall, hypertension, chronic pain, sacral decubiti and indwelling catheter who lives with his at [facility]. Patient presents to the ER with few days onset of weakness, nasal congestion myalgia and cough. He was evaluated in the ER where initial work-up was consistent with positive COVID-19 with acute viral syndrome and complicated hardware related UTI with pyuria. Patient changes catheter once every 3 weeks. He has been on methenamine and cefuroxime as an outpatient for catheter infection which clearly has failed treatment and gotten worse. Patient's expressed great concerns about ability to take care of him due to paraplegia/and both being Covid positive. Subsequently hospital service was consulted for admission At the time of my evaluation patient is alert but anxious. He is able to answer most of the questions and endorsed to history as above. He denies changes medications. He change his catheter 2 weeks ago. 08/02-patient feels worse since admission. He appears anxious. Seemed visibly unhappy with his unable to take care of him. Patient requested to visit caseworkers. He however is agreeable to being treated for complicated UTI in Covid infection. He clearly stated that he would not want to be in a rehab facility following discharge and would like to go back home but unclear how he would be able to manage himself. 08/03-patient doing well. No overnight events. Remains agitated and wants to discuss his home situation with a rock dust sprayer. Labs remarkable for low phosphorus currently on replacement. Cultures negative so far. Chavez's catheter will be changed today. Blood cultures negative so far. Patient was able to stand with assistance first time in a year. Constitutional Vitals: Vital Signs Temp Pulse Resp BP Pulse Ox 97.7 F 56 L 16 102/72 93 08/03/20 06:59 08/03/20 06:59 08/03/20 06:59 08/03/20 06:59 08/03/20 06:59 Period Temp Pulse Resp BP Sys/Marquez Pulse Ox Last 24 Hr 97.5 F-98.6 F 56-78 16-18 102-125/71-78 91-98 Intake and Output 08/02/20 08/03/20 08/03/20 21:59 05:59 13:59 Intake Total 1183 960 150 Output Total 1050 300 300 Balance 133 660 -150 Weight 99.875 kg anxious and very annoyed at his home situation and not been able to receive legal help at the hospital Nonlabored breathing Chavez is draining blood-tinged urine Intake & Output: Intake & Output 08/02/20 08/03/20 08/03/20 21:59 05:59 13:59 Intake Total 1183 960 150 Output Total 1050 300 300 Balance 133 660 -150 Weight 99.875 kg Intake: IV 1183 50 Sodium Chloride 0.9% 1,000 ml @ 933 50 mls/hr IV .Q20H [facility] Rx#: [id number] Veklury 100 mg In Sodium 250 Chloride 0.9% 250 ml @ 500 mls/ hr IV DAILY [facility] Rx#:[id number] Rocephin 2 gm In Dextrose 5% in 50 Water 50 ml @ 100 mls/hr IV DAILY [facility] Rx#:[id number] Oral 960 100 Output: Urine Catheter Amount 1050 300 300 Uretheral (Chavez) 300 Other: Meal Nourishment/Supplement Nourishment/Supplement Percent of Meal Consumed 100% 25% Feeding Ability Independent Nourishment/Supplement name Egg Salad/Crackers/Applejuice Urine Appearance Sediment Sediment Sediment Uretheral (Chavez) Sediment Sediment Urine Color Tea Colored Tea Colored Tea Colored Red Brown Red Brown Red Brown Uretheral (Chavez) Tea Colored Tea Colored Red Brown Red Brown Urine Odor Strong Strong Strong Uretheral (Chavez) Strong Strong Stool Size Moderate Stool Color Brown Stool Consistency Loose # Bowel Movements 1 # of times incontinent of 1 Bowels OBJ DATA Labs CBC & Chem 7: 08/01/20 19:40 08/03/20 05:45 Labs: Abnormal Lab Results 08/03/20 08/01/20 08/01/20 05:45 20:05 19:44 WBC RDW [place] % (Auto) Lymph # (Auto) Carbon Dioxide 21 L Creatinine 0.6 L Glucose 144 H Phosphorus 1.6 L Ferritin 858.4 H GGT 87 H C-Reactive Protein Procalcitonin Urine Appearance Cloudy A Urine Protein 100 A Urine Ketones 20 A Urine Occult Blood >=1.0 A Urine Nitrate Pos A Urine Urobilinogen 4.0 A Ur Leukocyte Esterase 75 A Urine RBC > 182 H Urine WBC 84 H Calcium Oxalate Crystal Few A Urine Bacteria Mod A Hyaline Casts 13 H Urine Mucus Few A SARS-CoV-2 (PCR) Positive A 08/01/20 08/01/20 08/01/20 19:40 19:40 19:40 WBC 4.4 L RDW 15.0 H [place] % (Auto) 16.3 H Lymph # (Auto) 1.00 L Carbon Dioxide 21 L Creatinine Glucose Phosphorus Ferritin GGT C-Reactive Protein 1.90 H Procalcitonin 0.11 H Urine Appearance Urine Protein Urine Ketones Urine Occult Blood Urine Nitrate Urine Urobilinogen Ur Leukocyte Esterase Urine RBC Urine WBC Calcium Oxalate Crystal Urine Bacteria Hyaline Casts Urine Mucus SARS-CoV-2 (PCR) Meds: Medications Acetaminophen (Tylenol) 650 mg PO Q4-6HP PRN; Protocol PRN Reason: Per Pain Protocol/Fever > 101 Hydrocodone Bitart/Acetaminophen ([place] 10/325mg) 1 tab PO Q8HP PRN; Protocol PRN Reason: Pain Bisacodyl (Dulcolax) 10 mg SD Q2-3DAYS PRN PRN Reason: Constipation Dexamethasone (Decadron) 6 mg PO DAILY [facility] Last Admin: 08/03/20 08:40 Dose: 6 mg Documented by: Docusate Sodium (Colace) 100 mg PO BID [facility] Last Admin: 08/03/20 08:41 Dose: Not Given Documented by: Heparin Sodium (Porcine) (Heparin) 5,000 unit SQ Q12 [facility] Last Admin: 08/03/20 08:39 Dose: 5,000 unit Documented by: Sodium Chloride (Sodium Chloride 0.9%) 1,000 mls @ 50 mls/hr IV .Q20H [facility] Last Admin: 08/02/20 20:40 Dose: 50 mls/hr Documented by: Potassium Chloride 40 meq/ (Dextrose) 520 mls @ 130 mls/hr IV UD PRN PRN Reason: K+ = or < 3.5 Acetaminophen (Ofirmev) 650 mg in 65 mls @ 130 mls/hr IV Q6HP PRN; Protocol PRN Reason: Per Pain Protocol/Fever > 101 Magnesium Sulfate (Magnesium Sulfate) 2 gm in 50 mls @ 50 mls/hr IV UD PRN PRN Reason: MG = or < 1.7 Sodium Chloride (Sodium Chloride 0.9%) 1,000 mls @ 50 mls/hr IV .Q20H [facility] Stop: 08/04/20 20:29 Last Admin: 08/03/20 04:00 Dose: 50 mls/hr Documented by: Ceftriaxone Sodium 2 gm/ (Dextrose) 50 mls @ 100 mls/hr IV DAILY [facility]; Protocol Last Infusion: 08/03/20 09:15 Dose: Infused Documented by: REMDESIVIR 100 mg/ Sodium (Chloride) 250 mls @ 500 mls/hr IV DAILY [facility] Stop: 08/05/20 09:29 Last Admin: 08/03/20 09:54 Dose: 500 mls/hr Documented by: Iron Carb/Multivit/[place]/Folic Acid (Multivitamin W/Minerals) 1 tab PO DAILY [facility] Last Admin: 08/03/20 08:41 Dose: 1 tab Documented by: Lisinopril (Zestril) 20 mg PO DAILY [facility] Last Admin: 08/03/20 08:41 Dose: 20 mg Documented by: Melatonin (Melatonin 3mg Tablet) 3 mg PO HSP PRN PRN Reason: Insomnia Metoprolol Tartrate (Lopressor) 100 mg PO QDAY [facility] Last Admin: 08/03/20 08:40 Dose: 100 mg Documented by: Ondansetron HCl (Zofran Odt) 4 mg SL Q4-6HP PRN; Protocol PRN Reason: Nausea And Vomiting Ondansetron HCl (Zofran) 4 mg IV Q4-6HP PRN; Protocol PRN Reason: Nausea And Vomiting Oxycodone HCl (Roxicodone) 5 mg PO TID [facility]; Protocol Last Admin: 08/03/20 08:40 Dose: 5 mg Documented by: Methenamine Hippurate 1 Gm Tablet 1 dose PO BID [facility] Last Admin: 08/03/20 08:41 Dose: Not Given Documented by: Polyethylene Glycol (Miralax) 17 gm PO DAILYP PRN PRN Reason: Constipation Potassium Chloride (Klor-Con) 40 meq PO DAILYP PRN PRN Reason: K+ < 3.5 Potassium/Phosphorus/Sodium (Neutra Phos) 2 packet PO DAILY PRN PRN Reason: PHOS <2.5 Last Admin: 08/03/20 09:54 Dose: 2 packet Documented by: Senna/Docusate Sodium (Senna Plus Tablet) 1 tab PO HS [facility] Last Admin: 08/02/20 20:40 Dose: Not Given Documented by: Sodium Chloride (Saline Flush) 10 ml IV Q8 [facility] Last Admin: 08/03/20 04:08 Dose: Not Given Documented by: A/P Narrative A/P Narrative: * Complicated UTI hardware related failed outpatient treatment. Clinically improving on Rocephin , cultures negative so far * COVID-19 acute viral syndrome-continue remdesivir/dexamethasone/contact precautions * Hypophosphorus-continue replacement * History of hypertension continue PK inhibitor/metoprolol * Chronic pain continue hydrocodone acetaminophen/Oxycodone * Sacral decubiti wound care/frequent turning and offloading * Chronic paraplegia directed therapies, was able to stand with assistance * Prophylaxis heparin * DNR Plan * Continue antibiotic coverage and de-escalate based on sensitivities * Replace Chavez's catheter * Oral phosphorus replacement * Continue remdesivir/dexamethasone/contact precautions * Pre-existing medical condition management as above * Case management coordinate safe discharge planning Time Spent With Patient Time: Total time spent is greater than 50% in coordination of care (as documented) at patient's floor/unit and/or counseling patient: QUALITY Stroke Symptom Onset Unknown: No VTE Deep Vein Thrombosis/Pulmonary Embolism Present on Admission: No
[2020-08-03 12:04] LABS: Hematocrit 45.2 % (41.0-55.0); Hemoglobin 14.5 g/dL (13.5-16.5); Lymphocytes % 33 % (15-49); Mean Cell Volume 85.3 fL (80.0-100.0); Mean Corpuscular HGB Conc 32.1 g/dL (31.0-36.0); Mean Platelet Volume 9.4 fL (7.4-10.4); Monocytes % (Manual) 14 % (1-12); Platelet Count 261 K/mcL (140-440); Platelet Estimate NORMAL (Normal); RBC Morphology NORMAL (Normal); Red Cell Distribution Width 14.4 % (11.5-14.5); Segmented Neutrophils % 53 % (38-78); WBC 3.9 K/mcL (4.5-11.0)
[2020-08-03] MEDS: SENNOSIDES/DOCUSATE SODIUM 1 TAB TABLET PO SCH (22:10)
[2020-08-04] MEDS: 0.9 % SODIUM CHLORIDE 1,000 ML IV SCH ×2 (00:30→11:02)
[2020-08-04] MEDS: 0.9 % SODIUM CHLORIDE 10 ML SYRINGE IV SCH ×3 (05:10→22:00)
[2020-08-04 08:21] LABS: ALT/SGPT 15 U/L (<40); AST/SGOT 22 U/L (<40); Albumin 3.3 gm/dL (3.2-5.2); Albumin/Globulin Ratio 1.2 (1.0-2.3); Alkaline Phosphatase 90 U/L (39-117); Bilirubin,Direct < 0.2 mg/dL (<0.3); Bilirubin,Total 0.3 mg/dL (0.1-1.0); Blood Urea Nitrogen 16 mg/dL (8-23); Calcium 8.4 mg/dL (8.6-10.4); Carbon Dioxide 21 mmol/L (22-30); Chloride 105 mmol/L (96-108); Globulin 2.7 gm/dL (2.2-3.7); Glomerular Filtration Rate 100; Glucose 111 mg/dL (70-105); Lactate Dehydrogenase 189 U/L (135-225); Phosphorous 1.8 mg/dL (2.5-4.5); Triglycerides 130 mg/dL (<150); Uric Acid 5.6 mg/dL (2.5-8.0)
[2020-08-04] MEDS ORDERED: cefTRIAXone 2 GM VIAL ONE ×2 (08:30→10:50)
--- NOTE | 2020-08-04 08:32 | XRay Report ---
INDICATION: Interval Change TECHNIQUE: AP portable semiupright chest x-ray COMPARISON: Chest x-rays dated 08/01/2020, 09/07/2018, 07/11/2018 FINDINGS: Lungs:Lungs are negative. No focal pulmonary parenchymal infiltrate or mass Heart, vascular:No significant cardiomegaly. Pulmonary vascularity is normal. No pulmonary edema or pulmonary congestion Mediastinum, lina:No mediastinal widening. No hilar mass Pleura:No pleural fluid. No pleural-based mass or calcification Skeletal:Negative. IMPRESSION: 1. Negative AP chest x-ray 2. No significant interval change since 08/01/2020 Interpreted and Authenticated by: Jace Pitts 08/04/20
[2020-08-04 08:34] LABS: Band Neutrophils % 2 % (0-10); Hematocrit 42.5 % (41.0-55.0); Hemoglobin 13.6 g/dL (13.5-16.5); Lymphocytes % 14 % (15-49); Mean Cell Volume 86.4 fL (80.0-100.0); Mean Platelet Volume 9.7 fL (7.4-10.4); Monocytes % (Manual) 9 % (1-12); Platelet Count 253 K/mcL (140-440); Platelet Estimate NORMAL (Normal); RBC 4.92 M/mcL (4.50-5.90); RBC Morphology NORMAL (Normal); Red Cell Distribution Width 14.5 % (11.5-14.5); Segmented Neutrophils % 75 % (38-78); WBC 7.2 K/mcL (4.5-11.0)
[2020-08-04] MEDS: REMDESIVIR 100 MG in 0.9 % SODIUM CHLORIDE 250 ML IV SCH (08:59)
[2020-08-04] MEDS: cefTRIAXone 2 GM in DEXTROSE 5% IN WATER 50 ML IV SCH (08:59)
[2020-08-04] MEDS: METOPROLOL TARTRATE 50 MG TABLET PO SCH (09:00)
[2020-08-04] MEDS: MULTIVIT,THER IRON,CA,FA & MIN 1 TABLET PO SCH (09:00)
[2020-08-04] MEDS: HEPARIN 5,000 UNIT/ML VIAL SQ SCH ×2 (09:00→20:50)
[2020-08-04] MEDS: DEXAMETHASONE 4 MG TABLET PO SCH (09:01)
[2020-08-04] MEDS: oxyCODONE HCL 5 MG TABLET PO SCH ×3 (09:01→20:50)
[2020-08-04] MEDS: LISINOPRIL 20 MG TABLET PO SCH (09:14)
[2020-08-04] MEDS: DOCUSATE SODIUM 100 MG CAPSULE PO SCH ×2 (09:14→19:18)
[2020-08-04] MEDS: Methenamine Hippurate 1 GM Tablet PO SCH ×2 (10:15→19:19)
--- NOTE | 2020-08-04 11:51 | Internal Med Progress Note ---
SUBJECTIVE Subjective Patient information: Note initiated : 08/04/20 at 11:49 am Service Date, if different from initiated Date: [] Patient: Marvin Jimenez a 75 y/o M admitted on 08/03/20 for weakness. Chief Complaint: [] Interval history: History of present illness: Mr. Jimenez is a 75 year old M with a history of progressive paraplegia over the last 1 year following a fall, hypertension, chronic pain, sacral decubiti and indwelling catheter who lives with his at [facility]. Patient presents to the ER with few days onset of weakness, nasal congestion myalgia and cough. He was evaluated in the ER where initial work-up was consistent with positive COVID-19 with acute viral syndrome and complicated hardware related UTI with pyuria. Patient changes catheter once every 3 weeks. He has been on methenamine and cefuroxime as an outpatient for catheter infection which clearly has failed treatment and gotten worse. Patient's expressed great concerns about ability to take care of him due to paraplegia/and both being Covid positive. Subsequently hospital service was consulted for admission At the time of my evaluation patient is alert but anxious. He is able to answer most of the questions and endorsed to history as above. He denies changes medications. He change his catheter 2 weeks ago. 08/02-patient feels worse since admission. He appears anxious. Seemed visibly unhappy with his unable to take care of him. Patient requested to visit caseworkers. He however is agreeable to being treated for complicated UTI in Covid infection. He clearly stated that he would not want to be in a rehab facility following discharge and would like to go back home but unclear how he would be able to manage himself. 08/03-patient doing well. No overnight events. Remains agitated and wants to discuss his home situation with a street department dispatcher. Labs remarkable for low phosphorus currently on replacement. Cultures negative so far. Chavez's catheter will be changed today. Blood cultures negative so far. Patient was able to stand with assistance first time in a year. 08/04-patient in good spirits. He however wants to be discharged on Thursday. No overnight event including fever chills or worsening respiratory status. Contin ue remdesivir/dexamethasone/antibiotic coverage for UTI. Improved phosphorus on replacement. Gram-negative bacilli on urine culture. De-escalate antibiotics based on sensitivities. Continue offloading/decubitus care Constitutional Vitals: Vital Signs Temp Pulse Resp BP Pulse Ox 98.3 F 55 L 16 109/67 95 08/04/20 07:51 08/04/20 07:51 08/04/20 07:51 08/04/20 07:51 08/04/20 07:51 Period Temp Pulse Resp BP Sys/Marquez Pulse Ox Last 24 Hr 97.9 F-98.8 F 55-68 16-18 109-138/65-75 93-95 Intake and Output 08/03/20 08/04/20 08/04/20 21:59 05:59 13:59 Intake Total 500 1400 Output Total 400 750 Balance 100 650 Weight 100.471 kg alert oriented Chavez is draining clear urine No anxiety Decubiti Intake & Output: Intake & Output 08/03/20 08/04/20 08/04/20 21:59 05:59 13:59 Intake Total 500 1400 Output Total 400 750 Balance 100 650 Weight 100.471 kg Intake: IV 1000 Sodium Chloride 0.9% 1,000 ml @ 1000 50 mls/hr IV .Q20H [facility] Rx#: [id number] Oral 500 400 Output: Urine Catheter Amount 400 750 Other: Urine Appearance Sediment Sediment Uretheral (Chavez) Sediment Urine Color Dark Yellow Dark Yellow Dark [place] Uretheral (Chavez) Tea Colored Red Brown Urine Odor Strong Normal Uretheral (Chavez) Strong Stool Consistency Liquid Loose OBJ DATA Labs CBC & Chem 7: 08/04/20 06:25 08/04/20 06:25 Labs: Abnormal Lab Results 08/04/20 08/04/20 08/03/20 06:25 06:25 05:45 WBC RDW [place] % (Auto) Lymph # (Auto) Lymphocytes % 14 L Monocytes % (Manual) Carbon Dioxide 21 L 21 L Creatinine 0.6 L 0.6 L Glucose 111 H 144 H Calcium 8.4 L Phosphorus 1.8 L 1.6 L Ferritin 858.4 H GGT 81 H 87 H C-Reactive Protein Procalcitonin Urine Appearance Urine Protein Urine Ketones Urine Occult Blood Urine Nitrate Urine Urobilinogen Ur Leukocyte Esterase Urine RBC Urine WBC Calcium Oxalate Crystal Urine Bacteria Hyaline Casts Urine Mucus SARS-CoV-2 (PCR) 08/03/20 08/01/20 08/01/20 05:45 20:05 19:44 WBC 3.9 L RDW [place] % (Auto) Lymph # (Auto) Lymphocytes % Monocytes % (Manual) 14 H Carbon Dioxide Creatinine Glucose Calcium Phosphorus Ferritin GGT C-Reactive Protein Procalcitonin Urine Appearance Cloudy A Urine Protein 100 A Urine Ketones 20 A Urine Occult Blood >=1.0 A Urine Nitrate Pos A Urine Urobilinogen 4.0 A Ur Leukocyte Esterase 75 A Urine RBC > 182 H Urine WBC 84 H Calcium Oxalate Crystal Few A Urine Bacteria Mod A Hyaline Casts 13 H Urine Mucus Few A SARS-CoV-2 (PCR) Positive A 08/01/20 08/01/20 08/01/20 19:40 19:40 19:40 WBC 4.4 L RDW 15.0 H [place] % (Auto) 16.3 H Lymph # (Auto) 1.00 L Lymphocytes % Monocytes % (Manual) Carbon Dioxide 21 L Creatinine Glucose Calcium Phosphorus Ferritin GGT C-Reactive Protein 1.90 H Procalcitonin 0.11 H Urine Appearance Urine Protein Urine Ketones Urine Occult Blood Urine Nitrate Urine Urobilinogen Ur Leukocyte Esterase Urine RBC Urine WBC Calcium Oxalate Crystal Urine Bacteria Hyaline Casts Urine Mucus SARS-CoV-2 (PCR) Meds: Medications Acetaminophen (Tylenol) 650 mg PO Q4-6HP PRN; Protocol PRN Reason: Per Pain Protocol/Fever > 101 Hydrocodone Bitart/Acetaminophen ([place] 10/325mg) 1 tab PO Q8HP PRN; Protocol PRN Reason: Pain Bisacodyl (Dulcolax) 10 mg AR Q2-3DAYS PRN PRN Reason: Constipation Dexamethasone (Decadron) 6 mg PO DAILY [facility] Last Admin: 08/04/20 09:01 Dose: 6 mg Documented by: Docusate Sodium (Colace) 100 mg PO BID [facility] Last Admin: 08/04/20 09:14 Dose: 100 mg Documented by: Heparin Sodium (Porcine) (Heparin) 5,000 unit SQ Q12 [facility] Last Admin: 08/04/20 09:00 Dose: 5,000 unit Documented by: Sodium Chloride (Sodium Chloride 0.9%) 1,000 mls @ 50 mls/hr IV .Q20H [facility] Last Admin: 08/04/20 11:02 Dose: Not Given Documented by: Potassium Chloride 40 meq/ (Dextrose) 520 mls @ 130 mls/hr IV UD PRN PRN Reason: K+ = or < 3.5 Acetaminophen (Ofirmev) 650 mg in 65 mls @ 130 mls/hr IV Q6HP PRN; Protocol PRN Reason: Per Pain Protocol/Fever > 101 Magnesium Sulfate (Magnesium Sulfate) 2 gm in 50 mls @ 50 mls/hr IV UD PRN PRN Reason: MG = or < 1.7 Sodium Chloride (Sodium Chloride 0.9%) 1,000 mls @ 50 mls/hr IV .Q20H [facility] Stop: 08/04/20 20:29 Last Admin: 08/04/20 00:30 Dose: 50 mls/hr Documented by: Ceftriaxone Sodium 2 gm/ (Dextrose) 50 mls @ 100 mls/hr IV DAILY [facility]; Protocol Last Admin: 08/04/20 08:59 Dose: 100 mls/hr Documented by: REMDESIVIR 100 mg/ Sodium (Chloride) 250 mls @ 500 mls/hr IV DAILY [facility] Stop: 08/05/20 09:29 Last Admin: 08/04/20 08:59 Dose: 500 mls/hr Documented by: Iron Carb/Multivit/Resource Director/Folic Acid (Multivitamin W/Minerals) 1 tab PO DAILY [facility] Last Admin: 08/04/20 09:00 Dose: 1 tab Documented by: Lisinopril (Zestril) 20 mg PO DAILY [facility] Last Admin: 08/04/20 09:14 Dose: 20 mg Documented by: Melatonin (Melatonin 3mg Tablet) 3 mg PO HSP PRN PRN Reason: Insomnia Metoprolol Tartrate (Lopressor) 100 mg PO QDAY [facility] Last Admin: 08/04/20 09:00 Dose: 100 mg Documented by: Ondansetron HCl (Zofran Odt) 4 mg SL Q4-6HP PRN; Protocol PRN Reason: Nausea And Vomiting Ondansetron HCl (Zofran) 4 mg IV Q4-6HP PRN; Protocol PRN Reason: Nausea And Vomiting Oxycodone HCl (Roxicodone) 5 mg PO TID [facility]; Protocol Last Admin: 08/04/20 08:59 Dose: 5 mg Documented by: Methenamine Hippurate 1 Gm Tablet 1 dose PO BID [facility] Last Admin: 08/04/20 10:15 Dose: Not Given Documented by: Polyethylene Glycol (Miralax) 17 gm PO DAILYP PRN PRN Reason: Constipation Potassium Chloride (Klor-Con) 40 meq PO DAILYP PRN PRN Reason: K+ < 3.5 Potassium/Phosphorus/Sodium (Neutra Phos) 2 packet PO DAILY PRN PRN Reason: PHOS <2.5 Last Admin: 08/03/20 09:54 Dose: 2 packet Documented by: Senna/Docusate Sodium (Senna Plus Tablet) 1 tab PO HS [facility] Last Admin: 08/03/20 22:10 Dose: Not Given Documented by: Sodium Chloride (Saline Flush) 10 ml IV Q8 [facility] Last Admin: 08/04/20 05:10 Dose: Not Given Documented by: A/P Narrative A/P Narrative: * Complicated GNR UTI hardware related failed outpatient treatment. Clinically improving on Rocephin, de-escalate based on sensitivities * COVID-19 acute viral syndrome-continue remdesivir/dexamethasone/contact precautions * Hypophosphorus-improving with the placement. 1.8 today. * History of hypertension well-controlled on home dose PK inhibitor/metoprolol * Chronic pain continue hydrocodone acetaminophen/Oxycodone * Sacral decubiti wound care/frequent turning and offloading * Chronic paraplegia directed therapies, was able to stand with assistance, sup rapubic catheter changed * Prophylaxis heparin * DNR Plan * Continue antibiotic coverage and de-escalate based on sensitivities * Continue remdesivir/dexamethasone/contact precautions * Pre-existing medical condition management as above * Nutrition support/therapies * Case management coordinate safe discharge planning Time Spent With Patient Time: Total time spent is greater than 50% in coordination of care (as documented) at patient's floor/unit and/or counseling patient: QUALITY Stroke Symptom Onset Unknown: No VTE Deep Vein Thrombosis/Pulmonary Embolism Present on Admission: No
[2020-08-04] MEDS: SENNOSIDES/DOCUSATE SODIUM 1 TAB TABLET PO SCH (19:19)
[2020-08-05] MEDS: 0.9 % SODIUM CHLORIDE 10 ML SYRINGE IV SCH ×3 (05:17→20:48)
[2020-08-05] MEDS: 0.9 % SODIUM CHLORIDE 1,000 ML IV SCH (09:05)
[2020-08-05] MEDS: MULTIVIT,THER IRON,CA,FA & MIN 1 TABLET PO SCH (09:06)
[2020-08-05] MEDS: DOCUSATE SODIUM 100 MG CAPSULE PO SCH ×2 (09:06→20:47)
[2020-08-05] MEDS: oxyCODONE HCL 5 MG TABLET PO SCH ×3 (09:06→20:48)
[2020-08-05] MEDS: cefTRIAXone 2 GM in DEXTROSE 5% IN WATER 50 ML IV SCH (09:06)
[2020-08-05] MEDS: METOPROLOL TARTRATE 50 MG TABLET PO SCH (09:07)
[2020-08-05] MEDS: LISINOPRIL 20 MG TABLET PO SCH (09:07)
[2020-08-05] MEDS: DEXAMETHASONE 4 MG TABLET PO SCH (09:07)
[2020-08-05] MEDS: HEPARIN 5,000 UNIT/ML VIAL SQ SCH ×2 (09:07→20:47)
[2020-08-05] MEDS: Methenamine Hippurate 1 GM Tablet PO SCH ×2 (09:08→20:48)
[2020-08-05 09:42] LABS: ALT/SGPT 28 U/L (<40); AST/SGOT 32 U/L (<40); Albumin 3.2 gm/dL (3.2-5.2); Albumin/Globulin Ratio 1.3 (1.0-2.3); Alkaline Phosphatase 90 U/L (39-117); Bilirubin,Direct < 0.2 mg/dL (<0.3); Bilirubin,Total 0.2 mg/dL (0.1-1.0); Blood Urea Nitrogen 16 mg/dL (8-23); Calcium 8.2 mg/dL (8.6-10.4); Carbon Dioxide 22 mmol/L (22-30); Chloride 107 mmol/L (96-108); Globulin 2.4 gm/dL (2.2-3.7); Glomerular Filtration Rate 100; Glucose 142 mg/dL (70-105); Lactate Dehydrogenase 178 U/L (135-225); Phosphorous 1.2 mg/dL (2.5-4.5); Triglycerides 173 mg/dL (<150); Uric Acid 4.6 mg/dL (2.5-8.0)
[2020-08-05 10:37] LABS: Band Neutrophils % 1 % (0-10); Hematocrit 41.3 % (41.0-55.0); Lymphocytes % 14 % (15-49); Mean Cell Volume 87.9 fL (80.0-100.0); Mean Corpuscular HGB Conc 31.5 g/dL (31.0-36.0); Mean Platelet Volume 9.7 fL (7.4-10.4); Monocytes % (Manual) 7 % (1-12); Platelet Count 240 K/mcL (140-440); Platelet Estimate NORMAL (Normal); RBC Morphology NORMAL (Normal); Reactive Lymphocytes 1 % (0-2); Red Cell Distribution Width 14.7 % (11.5-14.5); Segmented Neutrophils % 77 % (38-78); WBC 6.9 K/mcL (4.5-11.0)
[2020-08-05] MEDS: REMDESIVIR 100 MG in 0.9 % SODIUM CHLORIDE 250 ML IV SCH (11:12)
[2020-08-05] MEDS: NEUTRA PHOS 1 PACKET PO PRN (15:22)
[2020-08-05] MEDS: SENNOSIDES/DOCUSATE SODIUM 1 TAB TABLET PO SCH (20:48)
[2020-08-06] MEDS: 0.9 % SODIUM CHLORIDE 10 ML SYRINGE IV SCH (05:23)
[2020-08-06] MEDS: 0.9 % SODIUM CHLORIDE 1,000 ML IV SCH (05:23)
[2020-08-06 08:24] LABS: ALT/SGPT 39 U/L (<40); AST/SGOT 31 U/L (<40); Albumin 3.2 gm/dL (3.2-5.2); Albumin/Globulin Ratio 1.2 (1.0-2.3); Alkaline Phosphatase 88 U/L (39-117); Bilirubin,Direct < 0.2 mg/dL (<0.3); Bilirubin,Total 0.3 mg/dL (0.1-1.0); Blood Urea Nitrogen 15 mg/dL (8-23); Calcium 8.3 mg/dL (8.6-10.4); Carbon Dioxide 22 mmol/L (22-30); Chloride 105 mmol/L (96-108); Globulin 2.6 gm/dL (2.2-3.7); Glomerular Filtration Rate 107; Glucose 113 mg/dL (70-105); Lactate Dehydrogenase 223 U/L (135-225); Phosphorous 1.7 mg/dL (2.5-4.5); Triglycerides 179 mg/dL (<150)
[2020-08-06 08:43] LABS: Band Neutrophils % 1 % (0-10); Hematocrit 41.3 % (41.0-55.0); Hemoglobin 13.6 g/dL (13.5-16.5); Lymphocytes % 14 % (15-49); Mean Cell Volume 84.6 fL (80.0-100.0); Mean Corpuscular HGB Conc 32.9 g/dL (31.0-36.0); Mean Platelet Volume 10.1 fL (7.4-10.4); Metamyelocytes % 3 %; Monocytes % (Manual) 11 % (1-12); Platelet Count 235 K/mcL (140-440); Platelet Estimate NORMAL (Normal); RBC 4.88 M/mcL (4.50-5.90); RBC Morphology NORMAL (Normal); Red Cell Distribution Width 14.4 % (11.5-14.5); Segmented Neutrophils % 71 % (38-78)
--- NOTE | 2020-08-06 08:50 | Internal Med Progress Note ---
SUBJECTIVE Subjective Patient information: Note initiated : 08/05/20 at 8:48 am Service Date, if different from initiated Date: [] Patient: Marvin Jimenez a 75 y/o M admitted on 08/03/20 for weakness. Chief Complaint: [] Interval history: History of present illness: Mr. Jimenez is a 75 year old M with a history of progressive paraplegia over the last 1 year following a fall, hypertension, chronic pain, sacral decubiti and indwelling catheter who lives with his at [facility]. Patient presents to the ER with few days onset of weakness, nasal congestion myalgia and cough. He was evaluated in the ER where initial work-up was consistent with positive COVID-19 with acute viral syndrome and complicated hardware related UTI with pyuria. Patient changes catheter once every 3 weeks. He has been on methenamine and cefuroxime as an outpatient for catheter infection which clearly has failed treatment and gotten worse. Patient's expressed great concerns about ability to take care of him due to paraplegia/and both being Covid positive. Subsequently hospital service was consulted for admission At the time of my evaluation patient is alert but anxious. He is able to answer most of the questions and endorsed to history as above. He denies changes medications. He change his catheter 2 weeks ago. 08/02-patient feels worse since admission. He appears anxious. Seemed visibly unhappy with his unable to take care of him. Patient requested to visit caseworkers. He however is agreeable to being treated for complicated UTI in C ovid infection. He clearly stated that he would not want to be in a rehab facility following discharge and would like to go back home but unclear how he would be able to manage himself. 08/03-patient doing well. No overnight events. 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 Labs remarkable for low phosphorus currently on replacement. Cultures negative so far. Chavez's catheter will be changed today. Blood cultures negative so far. Patient was able to stand with assistance first time in a year. 08/04-patient in good spirits. He however wants to be discharged on Thursday. No overnight event including fever chills or worsening respiratory status. Continue remdesivir/dexamethasone/antibiotic coverage for UTI. Improved phosphorus on replacement. Gram-negative bacilli on urine culture. De-escalate antibiotics based on sensitivities. Continue offloading/decubitus care 08/05-ongoing remdesivir infusion last dose today. Will discharge early tomorrow . No overnight fever chills. No concerns per staff Constitutional Vitals: Vital Signs Temp Pulse Resp BP Pulse Ox 97.1 F 61 20 174/90 97 08/06/20 07:20 08/06/20 03:50 08/06/20 07:20 08/06/20 07:20 08/06/20 07:20 Period Temp Pulse Resp BP Sys/Marquez Pulse Ox Last 24 Hr 97.1 F-99.0 F 49-62 20-22 126-174/69-90 94-97 Intake and Output 08/05/20 08/06/20 08/06/20 21:59 05:59 13:59 Intake Total 600 1445 Output Total 1575 Balance 600 -130 Weight 150.774 kg No anxiety Nonlabored breathing Intake & Output: Intake & Output 08/05/20 08/06/20 08/06/20 21:59 05:59 13:59 Intake Total 600 1445 Output Total 1575 Balance 600 -130 Weight 150.774 kg Intake: IV 1000 Sodium Chloride 0.9% 1,000 ml @ 1000 50 mls/hr IV .Q20H [facility] Rx#: [id number] Oral 600 445 Output: Urine Catheter Amount 1575 Other: Meal Nourishment/Supplement Sandwhich & OJ Percent of Meal Consumed 100% 100% Feeding Ability Independent Independent Urine Appearance Clear Uretheral (Chavez) Clear Urine Color Dark Yellow Uretheral (Chavez) Dark Yellow Stool Size Large Stool Color Brown Stool Consistency Formed OBJ DATA Labs CBC & Chem 7: 08/06/20 05:48 08/06/20 05:48 Labs: Abnormal Lab Results 08/06/20 08/06/20 08/05/20 05:48 05:48 06:08 WBC Hgb RDW Lymphocytes % 14 L Monocytes % (Manual) Carbon Dioxide Creatinine 0.5 L 0.6 L Glucose 113 H 142 H Calcium 8.3 L 8.2 L Phosphorus 1.7 L 1.2 L GGT 79 H 75 H Total Protein 5.8 L 5.6 L Triglycerides 179 H 173 H 08/05/20 08/04/20 08/04/20 06:08 06:25 06:25 WBC Hgb 13.0 L RDW 14.7 H Lymphocytes % 14 L 14 L Monocytes % (Manual) Carbon Dioxide 21 L Creatinine 0.6 L Glucose 111 H Calcium 8.4 L Phosphorus 1.8 L GGT 81 H Total Protein Triglycerides 08/03/20 05:45 WBC 3.9 L Hgb RDW Lymphocytes % Monocytes % (Manual) 14 H Carbon Dioxide Creatinine Glucose Calcium Phosphorus GGT Total Protein Triglycerides Meds: Medications Acetaminophen (Tylenol) 650 mg PO Q4-6HP PRN; Protocol PRN Reason: Per Pain Protocol/Fever > 101 Hydrocodone Bitart/Acetaminophen (Creighton 10/325mg) 1 tab PO Q8HP PRN; Protocol PRN Reason: Pain Bisacodyl (Dulcolax) 10 mg DE Q2-3DAYS PRN PRN Reason: Constipation Dexamethasone (Decadron) 6 mg PO DAILY [facility] Last Admin: 08/05/20 09:07 Dose: 6 mg Documented by: Docusate Sodium (Colace) 100 mg PO BID [facility] Last Admin: 08/05/20 20:47 Dose: 100 mg Documented by: Heparin Sodium (Porcine) (Heparin) 5,000 unit SQ Q12 [facility] Last Admin: 08/05/20 20:47 Dose: Not Given Documented by: Sodium Chloride (Sodium Chloride 0.9%) 1,000 mls @ 50 mls/hr IV .Q20H [facility] Last Admin: 08/06/20 05:23 Dose: 50 mls/hr Documented by: Potassium Chloride 40 meq/ (Dextrose) 520 mls @ 130 mls/hr IV UD PRN PRN Reason: K+ = or < 3.5 Acetaminophen (Ofirmev) 650 mg in 65 mls @ 130 mls/hr IV Q6HP PRN; Protocol PRN Reason: Per Pain Protocol/Fever > 101 Magnesium Sulfate (Magnesium Sulfate) 2 gm in 50 mls @ 50 mls/hr IV UD PRN PRN Reason: MG = or < 1.7 Ceftriaxone Sodium 2 gm/ (Dextrose) 50 mls @ 100 mls/hr IV DAILY [facility]; Protocol Last Infusion: 08/05/20 09:36 Dose: Infused Documented by: Iron Carb/Multivit/Lay Out Maker/Folic Acid (Multivitamin W/Minerals) 1 tab PO DAILY [facility] Last Admin: 08/05/20 09:06 Dose: 1 tab Documented by: Lisinopril (Zestril) 20 mg PO DAILY [facility] Last Admin: 08/05/20 09:07 Dose: 20 mg Documented by: Melatonin (Melatonin 3mg Tablet) 3 mg PO HSP PRN PRN Reason: Insomnia Last Admin: 08/04/20 20:51 Dose: 3 mg Documented by: Metoprolol Tartrate (Lopressor) 100 mg PO QDAY [facility] Last Admin: 08/05/20 09:07 Dose: Not Given Documented by: Ondansetron HCl (Zofran Odt) 4 mg SL Q4-6HP PRN; Protocol PRN Reason: Nausea And Vomiting Ondansetron HCl (Zofran) 4 mg IV Q4-6HP PRN; Protocol PRN Reason: Nausea And Vomiting Oxycodone HCl (Roxicodone) 5 mg PO TID [facility]; Protocol Last Admin: 08/05/20 20:48 Dose: 5 mg Documented by: Methenamine Hippurate 1 Gm Tablet 1 dose PO BID [facility] Last Admin: 08/05/20 20:48 Dose: Not Given Documented by: Polyethylene Glycol (Miralax) 17 gm PO DAILYP PRN PRN Reason: Constipation Potassium Chloride (Klor-Con) 40 meq PO DAILYP PRN PRN Reason: K+ < 3.5 Potassium/Phosphorus/Sodium (Neutra Phos) 2 packet PO DAILY PRN PRN Reason: PHOS <2.5 Last Admin: 08/05/20 15:22 Dose: 2 packet Documented by: Senna/Docusate Sodium (Senna Plus Tablet) 1 tab PO HS [facility] Last Admin: 08/05/20 20:48 Dose: Not Given Documented by: Sodium Chloride (Saline Flush) 10 ml IV Q8 [facility] Last Admin: 08/06/20 05:23 Dose: Not Given Documented by: A/P Narrative A/P Narrative: * Complicated E. coli UTI hardware related failed outpatient treatment. Clinically resolved * COVID-19 acute viral syndrome-continue remdesivir/dexamethasone/contact precautions * Hypophosphorus-improving with the placement. 1.8 today. * History of hypertension well-controlled on home dose PK inhibitor/metoprolol * Chronic pain continue hydrocodone acetaminophen/Oxycodone * Sacral decubiti wound care/frequent turning and offloading * Chronic paraplegia directed therapies, was able to stand with assistance, suprapubic catheter changed * Prophylaxis heparin * DNR Plan * Continue antibiotic coverage * Continue remdesivir/dexamethasone/contact precautions * Pre-existing medical condition management as above * Nutrition support/therapies * Possible discharge in 24 hours Time Spent With Patient Time: Total time spent is greater than 50% in coordination of care (as documented) at patient's floor/unit and/or counseling patient: QUALITY Stroke Symptom Onset Unknown: No VTE Deep Vein Thrombosis/Pulmonary Embolism Present on Admission: No
--- NOTE | 2020-08-06 08:53 | Discharge Summary ---
Discharge Provider Provider Patient information: Note initiated : 08/06/20 at 8:50 am Service Date, if different from initiated Date: [] Patient: Marvin Jimenez a 75 y/o M admitted on 08/03/20 for weakness. Discharge diagnosis * Complicated E. coli UTI hardware related failed outpatient treatment. Clinically resolved, continue additional 2 days oral ciprofloxacin. * COVID-19 acute viral syndrome-completed remdesivir/dexamethasone for additional 5 days * Low phosphorus-resolved with replacement * History of hypertension well-controlled on home dose PK inhibitor/metoprolol * Chronic pain continue hydrocodone acetaminophen/Oxycodone * Sacral decubiti - recommend requent turning and offloading/outpatient care * Chronic paraplegia directed therapies, was able to stand with assistance, suprapubic catheter changed Brief hospital course History of present illness: Mr. Jimenez is a 75 year old M with a history of progressive paraplegia over the last 1 year following a fall, hypertension, chronic pain, sacral decubiti and indwelling catheter who lives with his at [facility]. Patient presents to the ER with few days onset of weakness, nasal congestion myalgia and cough. He was evaluated in the ER where initial work-up was consistent with positive COVID-19 with acute viral syndrome and complicated hardware related UTI with pyuria. Patient changes catheter once every 3 weeks. He has been on methenamine and cefuroxime as an outpatient for catheter infection which clearly has failed treatment and gotten worse. Patient's expressed great concerns about ability to take care of him due to paraplegia/and both being Covid positive. Subsequently hospital service was consulted for admission At the time of my evaluation patient is alert but anxious. He is able to answer most of the questions and endorsed to history as above. He denies changes medications. He change his catheter 2 weeks ago. 08/02-patient feels worse since admission. He appears anxious. Seemed visibly unhappy with his unable to take care of him. Patient requested to visit caseworkers. He however is agreeable to being treated for complicated UTI in Covid infection. He clearly stated that he would not want to be in a rehab facility following discharge and would like to go back home but unclear how he would be able to manage himself. 08/03-patient doing well. No overnight events. 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 Labs remarkable for low phosphorus currently on replacement. Cultures negative so far. Chavez's catheter will be changed today. Blood cultures negative so far. Patient was able to stand with assistance first time in a year. 08/04-patient in good spirits. He however wants to be discharged on Thursday. No overnight event including fever chills or worsening respiratory status. Con tinue remdesivir/dexamethasone/antibiotic coverage for UTI. Improved phosphorus on replacement. Gram-negative bacilli on urine culture. De-escalate antibiotics based on sensitivities. Continue offloading/decubitus care 08/05-ongoing remdesivir infusion last dose today. Will discharge early tomorrow. No overnight fever chills. No concerns per staff 08/06-patient doing well. Completed remdesivir treatment. Continue dexamethasone for additional 5 days. Continue oral ciprofloxacin for additional 2 days for E. coli UTI. Patient refused SNF placement. Adamant on going back home. Discharging today in stable state with recommendations to follow with PCP Date of admission: 08/03/20 10:49 Discharge date: 08/06/20 Primary care physician: VIET العراقي Consults: 08/01/20 Consult to Physician [CONS] Stat Comment: Consulting Provider: Josse Kaur Reason For Exam: Physician to Consult 08/02/20 11:33 Consult to Physician [CONS] Routine Comment: Consulting Provider: [facility] Reason For Exam: Physician to Consult Discharge Meds Discharge Medications Home Medications metoprolol tartrate 100 mg tablet 100 mg PO QDAY #90 tab 04/29/16 [Rx Confirmed 08/01/20 Last Taken Unknown] benazepril 20 mg tablet 20 mg PO QDAY #60 tab 05/20/16 [Rx Confirmed 08/01/20 Last Taken Unknown] cefuroxime axetil 500 mg PO BID 08/01/20 [History Confirmed 08/01/20 Last Taken Unknown] hydrocodone-acetaminophen 1 tab PO Q8H PRN 08/01/20 [History Confirmed 08/01/20 Last Taken Unknown] methenamine hippurate 1 g PO BID 08/01/20 [History Confirmed 08/01/20 Last Taken Unknown] oxycodone 5 mg PO TID 08/01/20 [History Confirmed 08/01/20 Last Taken Unknown] ciprofloxacin HCl 500 mg PO BID #4 tab 08/06/20 [Rx Last Taken Unknown] dexamethasone 6 mg PO DAILY #9 tab 08/06/20 [Rx Last Taken Unknown] COURSE Hospital Course Hospital course: . Discharge diagnosis: . Time Spent with Patient Time attestation: Total time spent providing and/or coordinating discharge services: EXAM Constitutional Vitals: Temp Pulse Resp BP Pulse Ox 97.1 F 61 20 174/90 97 08/06/20 07:20 08/06/20 03:50 08/06/20 07:20 08/06/20 07:20 08/06/20 07:20 Discharge Data Data Completed and Pending Labs on day of discharge: Labs from last 24 hours 08/06/20 08/06/20 08/05/20 05:48 05:48 06:08 WBC 9.0 RBC 4.88 Hgb 13.6 Hct 41.3 MCV 84.6 MCH 27.9 MCHC 32.9 RDW 14.4 Plt Count 235 MPV 10.1 Seg Neutrophils % 71 Band Neutrophils % 1 Lymphocytes % 14 L Monocytes % (Manual) 11 Metamyelocytes % 3 Reactive Lymphocytes Platelet Estimate Normal RBC Morphology Normal Sodium 136 138 Potassium 4.2 4.0 Chloride 105 107 Carbon Dioxide 22 22 Anion Gap 9.0 9.0 BUN 15 16 Creatinine 0.5 L 0.6 L GFR Calculation 107 100 Glucose 113 H 142 H Uric Acid 4.0 4.6 Calcium 8.3 L 8.2 L Phosphorus 1.7 L 1.2 L Magnesium 2.2 2.3 Total Bilirubin 0.3 0.2 Direct Bilirubin < 0.2 < 0.2 GGT 79 H 75 H AST 31 32 ALT 39 28 Alkaline Phosphatase 88 90 Lactate Dehydrogenase 223 178 Total Protein 5.8 L 5.6 L Albumin 3.2 3.2 Globulin 2.6 2.4 Albumin/Globulin Ratio 1.2 1.3 Triglycerides 179 H 173 H 08/05/20 06:08 WBC 6.9 RBC 4.70 Hgb 13.0 L Hct 41.3 MCV 87.9 MCH 27.7 MCHC 31.5 RDW 14.7 H Plt Count 240 MPV 9.7 Seg Neutrophils % 77 Band Neutrophils % 1 Lymphocytes % 14 L Monocytes % (Manual) 7 Metamyelocytes % Reactive Lymphocytes 1 Platelet Estimate Normal RBC Morphology Normal Sodium Potassium Chloride Carbon Dioxide Anion Gap BUN Creatinine GFR Calculation Glucose Uric Acid Calcium Phosphorus Magnesium Total Bilirubin Direct Bilirubin GGT AST ALT Alkaline Phosphatase Lactate Dehydrogenase Total Protein Albumin Globulin Albumin/Globulin Ratio Triglycerides Discharge Plan Patient/Caregiver Discharge Instructions Activity: increase activity as tolerated Diet: Regular Diet Activity Restrictions/Additional Instructions: Continue dexamethasone for additional 5 days Ciprofloxacin for 2 days Follow-up PCP in 5 to 10 days Sacral decubitus care Patient refused SNF despite recommendation from case management and therapies due to underlying paraplegia/sacral decubiti and self-care deficits Prescriptions: New dexamethasone 4 mg Tablet 6 mg PO DAILY Qty: 9 RF: 0 ciprofloxacin HCl 500 mg tablet 500 mg PO BID Qty: 4 RF: 0 Continued metoprolol tartrate 100 mg tablet 100 mg PO QDAY Qty: 90 RF: 3 benazepril 20 mg tablet 20 mg PO QDAY Qty: 60 RF: 2 hydrocodone-acetaminophen 10-325 mg Tablet 1 tab PO Q8H PRN (Reason: Pain) RF: 0 methenamine hippurate 1 gram tablet 1 g PO BID RF: 0 cefuroxime axetil 500 mg Tablet 500 mg PO BID RF: 0 oxycodone 5 mg Tablet 5 mg PO TID RF: 0 Follow Up Plan Follow up with: Yaya Rader ARNP [Primary Care Provider] - Patient Disposition: Home, Self-Care Prognosis: Fair Rehab Potential: Fair I certify that the patient requires SNF services: No Overall status at discharge: patient is progressing back to baseline Discharge Orders: Discharge Order (Routine); Ordered 08/06/20 Ordered By: Josse BERRY VTE Deep Vein Thrombosis/Pulmonary Embolism Present on Admission: No
[2020-08-06] MEDS: Methenamine Hippurate 1 GM Tablet PO SCH (10:42)
[2020-08-06] MEDS: cefTRIAXone 2 GM in DEXTROSE 5% IN WATER 50 ML IV SCH (10:42)
[2020-08-06] MEDS: LISINOPRIL 20 MG TABLET PO SCH (10:43)
[2020-08-06] MEDS: MULTIVIT,THER IRON,CA,FA & MIN 1 TABLET PO SCH (10:43)
[2020-08-06] MEDS: DEXAMETHASONE 4 MG TABLET PO SCH (10:43)
[2020-08-06] MEDS: DOCUSATE SODIUM 100 MG CAPSULE PO SCH (10:43)
[2020-08-06] MEDS: HEPARIN 5,000 UNIT/ML VIAL SQ SCH (10:44)
[2020-08-06] MEDS: oxyCODONE HCL 5 MG TABLET PO SCH (10:44)
[2020-08-06] MEDS: METOPROLOL TARTRATE 50 MG TABLET PO SCH (10:47)
== END 2020-08-06 12:40 | disposition home or self-care (01) | DRG 698 ==
LOC: MEDSUR 18:43 → ED 18:43 → MEDSUR 08-02 01:20
PROVIDERS: ADMIT Internal Medicine; ATTEND Internal Medicine